=== PATIENT | female | born 1960 | race Caucasian/White ===

== ENCOUNTER 2017-02-03 20:39 | Observation (INO) | payer OTHER ==
[~2017-02-03] VITALS: Ht 172.7 cm; Wt 170.3 kg
[2017-02-03 21:57] LABS: HEMOGLOBIN 14.6 gm/dl (12.3-15.3); RED BLOOD COUNT 4.89 M/UL (4.00-5.10); WHITE BLOOD COUNT 17.3 K/UL (4.5-11.0)
[2017-02-04 05:27] LABS: HEMOGLOBIN 13.6 gm/dl (12.3-15.3); RED BLOOD COUNT 4.61 M/UL (4.00-5.10); WHITE BLOOD COUNT 15.8 K/UL (4.5-11.0)
[2017-02-04 05:49] LABS: BUN/CREATININE RATIO 20 (0-10)
[2017-02-04] MEDS ORDERED: TRAMADOL HCL50 MG PO (07:33)
[2017-02-04] MEDS ORDERED: LIORESAL TAB 1010 MG PO (07:34)
[2017-02-04] MEDS ORDERED: HYDROCHLOROTHIA25 MG PO (07:35)
[2017-02-04] MEDS ORDERED: COZAAR 50MG TAB50 MG PO (07:36)
[2017-02-04] MEDS ORDERED: ESCITALOPRAM OX20 MG PO (07:36)
[2017-02-04] MEDS ORDERED: ASPIR-LOW81 MG PO (07:37)
[2017-02-04] MEDS ORDERED: GABAPENTIN600 MG PO (07:39)
[2017-02-04] MEDS ORDERED: LEVOTHYROXINE75 MCG PO (07:40)
[2017-02-04] MEDS ORDERED: LOVASTATIN40 MG PO (07:41)
[2017-02-04] MEDS ORDERED: CLARITIN10 M2 PO (07:41)
[2017-02-04] MEDS ORDERED: MELOXICAM15 MG PO (07:42)
[2017-02-04] MEDS ORDERED: METFORMIN HCL500 M2 PO (07:44)
[2017-02-04] MEDS ORDERED: VITAMIN B-1000 MCG/M IM (07:44)
[2017-02-04] MEDS ORDERED: VITAMIN D50000 UNIT PO (07:46)
[2017-02-04] MEDS ORDERED: CLINDAMYCIN HC300 MG PO ×2 (12:48→12:49)
== END 2017-02-04 13:25 | disposition home or self-care (01) ==
LOC: ER1 20:39 → ZEROF 02-04 01:10 → MED SURG 4 02-04 01:10 → ER1 02-04 03:40 → MED SURG 4 02-04 03:50
PROVIDERS: Specialist/Technologist Athletic Trainer; ADMIT Internal Medicine
DX: J02.0 Streptococcal pharyngitis (principal); A41.9 Sepsis, unspecified organism; E11.9 Type 2 diabetes mellitus without complications; I10 Essential (primary) hypertension; E66.01 Morbid (severe) obesity due to excess calories; Z79.82 Long term (current) use of aspirin; Z79.899 Other long term (current) drug therapy; Z98.49 Cataract extraction status, unspecified eye; Z90.49 Acquired absence of other specified parts of digestive tract; Z88.0 Allergy status to penicillin; Z88.1 Allergy status to other antibiotic agents
CPT/HCPCS: 36415; 71010; 80048; 80053; 81001; 82550; 82962; 83605; 85025; 87040; 87081; 87086; 87880; 96361; 96374; 99284; G0378; J7030; J7050; J7070

== ENCOUNTER → 2020-10-05 | Outpatient (CLI) | payer OTHER ==
[~2020-10-05] MED LIST: ASPIR-LOW81 MG PO; CLARITIN10 M2 PO; CLINDAMYCIN HC300 MG PO; COLACE 100MG C100 MG PO; COZAAR 50MG TAB50 MG PO; ELIQUIS5 M1 PO; ESCITALOPRAM OX20 MG PO; GABAPENTIN600 MG PO; HYDROCHLOROTHIA25 MG PO; HYDROCODON-ACE1 EAC6 PO; IBUPROFEN600 MG PO; LEVOTHYROXINE75 MCG PO; LIORESAL TAB 1010 MG PO; LOVASTATIN40 MG PO; MELOXICAM15 MG PO; METFORMIN HCL500 M2 PO; SYNTHROID 100100 MCG PO; TRAMADOL HCL50 MG PO; VITAMIN B-1000 MCG/M IM; VITAMIN B12 PO; VITAMIN D21250 MCG PO; VITAMIN D50000 UNIT PO; ZOFRAN4 MG PO
== END ==
LOC: WCC 14:20
DX: L97.812 Non-pressure chronic ulcer of other part of right lower leg with fat layer exposed (principal); I82.431 Acute embolism and thrombosis of right popliteal vein; I82.411 Acute embolism and thrombosis of right femoral vein; I83.018 Varicose veins of right lower extremity with ulcer other part of lower leg; I10 Essential (primary) hypertension; E66.01 Morbid (severe) obesity due to excess calories; Z88.0 Allergy status to penicillin; Z88.1 Allergy status to other antibiotic agents; Z88.5 Allergy status to narcotic agent; Z88.8 Allergy status to other drugs, medicaments and biological substances
CPT/HCPCS: 97597; G0463

== ENCOUNTER → 2021-01-11 | Outpatient (CLI) | payer OTHER | LOC: EXRD 12-30 11:00 | DX: I82.431 Acute embolism and thrombosis of right popliteal vein (principal); M25.561 Pain in right knee; M17.11 Unilateral primary osteoarthritis, right knee | CPT/HCPCS: 73560; 93971 ==

== ENCOUNTER → 2021-06-22 | Outpatient (CLI) | payer OTHER | LOC: EXRD 06-16 08:30 | DX: M79.604 Pain in right leg (principal); I82.431 Acute embolism and thrombosis of right popliteal vein | CPT/HCPCS: 93971 ==

== ENCOUNTER → 2021-11-09 | Outpatient (CLI) | payer OTHER | LOC: KOH-I 10-28 10:45 | DX: M79.661 Pain in right lower leg (principal); M79.89 Other specified soft tissue disorders | CPT/HCPCS: 93971 ==

== ENCOUNTER → 2021-12-16 | Outpatient (CLI) | payer OTHER | LOC: KOH-I 12-08 14:30 | DX: M51.16 Intervertebral disc disorders with radiculopathy, lumbar region (principal) | CPT/HCPCS: 72148 ==

== ENCOUNTER → 2022-05-03 | Outpatient (CLI) | payer OTHER | LOC: EXRD 11:00 | DX: Z86.718 Personal history of other venous thrombosis and embolism (principal) | CPT/HCPCS: 93971 ==

== ENCOUNTER → 2022-05-24 | Outpatient (CLI) | payer OTHER | LOC: ECHO 10:45 → HEART 5 11:00 → ECHO 12:09 | DX: Z01.810 Encounter for preprocedural cardiovascular examination (principal); I73.9 Peripheral vascular disease, unspecified; R00.1 Bradycardia, unspecified; R06.02 Shortness of breath | CPT/HCPCS: ECHO; 93306 ==

== ENCOUNTER → 2022-05-25 | Outpatient (CLI) | payer OTHER | LOC: EXRD 11:15 | DX: I73.9 Peripheral vascular disease, unspecified (principal) | CPT/HCPCS: 93925 ==

== ENCOUNTER 2022-07-14 18:01 | Emergency (ER) | payer OTHER ==
[2022-07-14 20:09] LABS: HEMOGLOBIN 13.6 gm/dl (12.3-15.3); RED BLOOD COUNT 4.48 M/UL (4.00-5.10); WHITE BLOOD COUNT 11.8 K/UL (4.5-11.0)
[2022-07-14 20:28] LABS: BUN/CREATININE RATIO 22 (0-10)
== END 2022-07-14 22:28 | disposition home or self-care (01) ==
LOC: ER1 18:01
PROVIDERS: Preventive Medicine Occupational Medicine
DX: R55 Syncope and collapse (principal); I10 Essential (primary) hypertension; E11.9 Type 2 diabetes mellitus without complications
CPT/HCPCS: 70450; 71045; 80053; 81001; 82550; 82553; 83690; 84484; 85025; 85652; 86140; 87086; 96374; 99285; J2405